=== PATIENT | female | born 1995 | race Caucasian/White ===

== ENCOUNTER → 2016-04-26 | Outpatient (CLI) | payer BC | LOC: BHSO 15:17 | DX: F41.1 Generalized anxiety disorder (principal) ==

== ENCOUNTER → 2016-07-26 | Outpatient (CLI) | payer BC | LOC: BHSO 15:19 | DX: F41.1 Generalized anxiety disorder (principal) ==

== ENCOUNTER → 2016-11-29 | Outpatient (CLI) | payer BC | LOC: BHSO 15:18 | DX: F41.1 Generalized anxiety disorder (principal) ==

== ENCOUNTER → 2017-05-30 | Outpatient (CLI) | payer BC | LOC: BHSO 10:57 | DX: F33.1 Major depressive disorder, recurrent, moderate (principal) | CPT/HCPCS: G0463 ==

== ENCOUNTER → 2017-07-18 | Outpatient (CLI) | payer BC | LOC: BHSO 11:03 | DX: F33.41 Major depressive disorder, recurrent, in partial remission (principal) | CPT/HCPCS: G0463 ==

== ENCOUNTER → 2017-10-10 | Outpatient (CLI) | payer BC | LOC: BHSO 11:02 | DX: F41.1 Generalized anxiety disorder (principal) | CPT/HCPCS: G0463 ==

== ENCOUNTER → 2018-10-19 | Outpatient (CLI) | payer BC | LOC: BHSO 09:47 | DX: F33.42 Major depressive disorder, recurrent, in full remission (principal) | CPT/HCPCS: G0463 ==